=== PATIENT | female | born 1965 | race Caucasian/White ===

== ENCOUNTER 2019-09-13 14:54 | Outpatient (RCR) | payer OTHER | END 2019-09-15 10:09 | disposition home or self-care (01) | LOC: WSOH 14:54 | DX: S00.33XD Contusion of nose, subsequent encounter (principal); Z90.710 Acquired absence of both cervix and uterus; Z98.51 Tubal ligation status; Z90.89 Acquired absence of other organs; Y99.0 Civilian activity done for income or pay ==

== ENCOUNTER 2019-12-29 08:23 | Day surgery (SDC) | payer OTHER ==
[~2019-12-29] VITALS: Ht 157.5 cm; Wt 93.2 kg
[2019-12-29] MEDS ORDERED: FIBER GUMMIES2.5 GM PO (08:49)
[2019-12-29] MEDS ORDERED: MERIBIN5 MG PO (08:50)
[2019-12-29 08:51] VITALS: BP 155/91; PULSE 87; TEMP 98.2
[2019-12-29] MEDS ORDERED: GARLIC100 MG PO (08:51)
[2019-12-29] MEDS ORDERED: B-12 250 MCG PO (08:51)
[2019-12-29 10:15] VITALS: BP 127/78; PULSE 81; TEMP 97.5
--- NOTE | 2019-12-29 10:15 | NUR ---
Pt returned via cart to [facility]. Ambulated to recliner in bay with SBA. Sister present in room. Pt given a muffin and coffee per request. VSS-see flowsheet. Call light in reach.
[2019-12-29 10:30] VITALS: BP 144/87; PULSE 81
[2019-12-29 10:45] VITALS: BP 126/78; PULSE 16
--- NOTE | 2019-12-29 11:30 | NUR ---
VS remain stable-see flowsheet. Pt reports she is ready to go and still waiting on Dr Tomlinson to visit with her post procedure. Pt requested to dc at this time. DC teaching completed, pt and sister verbalized understanding. IV removed and pt has dressed. Taken via wheelchair to private vehicle for dc home with sister driving.
== END 2019-12-29 11:25 | disposition home or self-care (01) ==
LOC: SDCO 08:23
DX: Z12.11 Encounter for screening for malignant neoplasm of colon (principal); K63.5 Polyp of colon; K57.30 Diverticulosis of large intestine without perforation or abscess without bleeding; M19.90 Unspecified osteoarthritis, unspecified site; Z86.010 Personal history of colon polyps; Z88.6 Allergy status to analgesic agent; Z87.891 Personal history of nicotine dependence
CPT/HCPCS: J2704

== ENCOUNTER → 2020-03-07 | Outpatient (CLI) | payer OTHER ==
[~2020-03-07] MED LIST: B-12 250 MCG PO; FIBER GUMMIES2.5 GM PO; GARLIC100 MG PO; MERIBIN5 MG PO
== END ==
LOC: MC.RAD 01-23 15:30
DX: Z12.31 Encounter for screening mammogram for malignant neoplasm of breast (principal); N64.89 Other specified disorders of breast

== ENCOUNTER → 2020-03-14 | Outpatient (CLI) | payer OTHER | LOC: MC.RAD 12:41 | DX: N63.14 Unspecified lump in the right breast, lower inner quadrant (principal); N64.9 Disorder of breast, unspecified | CPT/HCPCS: G0279 ==

== ENCOUNTER 2020-03-19 18:05 | Emergency (ER) | payer OTHER ==
[~2020-03-19] VITALS: Ht 160 cm; Wt 90.9 kg
[~2020-03-19 18:05] MED LIST changes: -GLUCOPHAGE500 MG/TAB PO; -ZESTRIL 20MG TA20 MG PO
[2020-03-19 18:07] VITALS: TEMP 97.8
[2020-03-19] MEDS ORDERED: GLUCOPHAGE500 MG/TAB PO (18:31)
[2020-03-19] MEDS ORDERED: ZESTRIL 20MG TA20 MG PO (18:32)
[2020-03-19 18:34] LABS: BASO # 0.1 (0.0-0.2); BASO % 0.4 % (0.0-2.0); EOS # 0.1 (0.0-0.7); GRAN # 8.5 (1.4-6.5); GRAN % 66.7 % (42.2-75.2); HEMATOCRIT 43.1 % (37.0-47.0); HEMOGLOBIN 14.4 g/dl (12.5-16.0); LYMPH # 3.1 (1.2-3.4); LYMPH % 24.4 % (20.0-51.0); MEAN CELL VOLUME 86 fl (80.0-100.0); MEAN CORPUSCULAR HEMOGLOBIN 29 pg (27.0-31.0); MEAN CORPUSCULAR HGB CONC 33 g/dl (33.0-37.0); MEAN PLATELET VOLUME 9.2 fl (7.4-10.4); MONO # 0.9 (0.1-0.6); MONO % 7.2 % (1.7-9.3); PLATELET COUNT 298 K/mm3 (130-400); RED BLOOD COUNT 5.01 M/mm3 (4.10-5.30); REDCELL DISTRIBUTION WIDTH-CV 12.7 % (11.5-14.5)
[2020-03-19 18:43] LABS: ALBUMIN 4.4 gm/dL (3.5-5.0); BILIRUBIN,TOTAL 0.4 mg/dL (0.0-1.0); CALCIUM 9.5 mg/dL (8.4-10.2); CREATININE, serum 0.55 (0.52-1.25); POTASSIUM 4.2 mmol/L (3.4-5.0); TOTAL PROTEIN 7.6 gm/dL (6.4-8.2)
[2020-03-19 18:59] LABS: TROPONIN-I 11.2 ng/mL (0.000-0.035)
[2020-03-19 19:02] LABS: PROTHROMBIN TIME 11.5 SECONDS (9.7-12.8)
[2020-03-19 19:05] LABS: PARTIAL THROMBOPLASTIN TIME 29.3 SECONDS (26.0-37.0)
[2020-03-19 19:18] VITALS: BP 100/73; PULSE 90
== END 2020-03-19 19:25 | disposition short-term general hospital (02) ==
LOC: COL.ER 18:05
PROVIDERS: Emergency Medicine
DX: I21.19 ST elevation (STEMI) myocardial infarction involving other coronary artery of inferior wall (principal); K21.9 Gastro-esophageal reflux disease without esophagitis; I10 Essential (primary) hypertension; E11.9 Type 2 diabetes mellitus without complications; Z87.891 Personal history of nicotine dependence; Z85.3 Personal history of malignant neoplasm of breast; Z79.84 Long term (current) use of oral hypoglycemic drugs
CPT/HCPCS: J1644; J2270; J2405; J7030

== ENCOUNTER → 2020-03-19 | Outpatient (CLI) | payer OTHER ==
[~2020-03-19] MED LIST changes: +GLUCOPHAGE500 MG/TAB PO; +ZESTRIL 20MG TA20 MG PO
== END ==
LOC: MC.RAD 07:19
DX: N63.14 Unspecified lump in the right breast, lower inner quadrant (principal)

== ENCOUNTER 2020-07-06 15:53 | Emergency (ER) | payer OTHER ==
[~2020-07-06] VITALS: Ht 165.1 cm; Wt 93.2 kg
[~2020-07-06 15:53] MED LIST changes: +ASPIRIN 81M81 MG/TA2 PO; +GLUCOPHAGE500 MG/TAB PO; +LOPRESSOR 225 MG/TAB PO; +PERCOCET 325 MG1 TA2 PO; +PLAVIX 75MG TAB75 MG PO; +PROTONIX20 MG PO; +ZESTRIL 20MG TA20 MG PO
[2020-07-06 16:04] VITALS: BP 125/80; TEMP 99.4
[2020-07-06 17:43] VITALS: PULSE 81
== END 2020-07-06 17:45 | disposition home or self-care (01) ==
LOC: COL.ER 15:53
DX: S83.91XA Sprain of unspecified site of right knee, initial encounter (principal); M23.91 Unspecified internal derangement of right knee; I10 Essential (primary) hypertension; E11.9 Type 2 diabetes mellitus without complications; Z88.6 Allergy status to analgesic agent; Z79.82 Long term (current) use of aspirin; Z79.02 Long term (current) use of antithrombotics/antiplatelets; Z79.84 Long term (current) use of oral hypoglycemic drugs; X50.1XXA Overexertion from prolonged static or awkward postures, initial encounter; Y92.009 Unspecified place in unspecified non-institutional (private) residence as the place of occurrence of the external cause
CPT/HCPCS: L1846

== ENCOUNTER → 2020-07-19 | Outpatient (CLI) | payer OTHER | LOC: COL.RAD 11:57 | DX: M71.21 Synovial cyst of popliteal space [Baker], right knee (principal); M22.41 Chondromalacia patellae, right knee; S83.241A Other tear of medial meniscus, current injury, right knee, initial encounter ==

== ENCOUNTER 2020-10-06 09:13 | Emergency (ER) | payer OTHER ==
[~2020-10-06] VITALS: Ht 165.1 cm; Wt 100.0 kg
[2020-10-06 09:19] VITALS: TEMP 98.5
[2020-10-06] MEDS ORDERED: CIPRODEX OT (09:34)
[2020-10-06 09:48] VITALS: BP 122/75; PULSE 70
== END 2020-10-06 09:47 | disposition home or self-care (01) ==
LOC: COL.ER 09:13
DX: H60.93 Unspecified otitis externa, bilateral (principal); U07.1 COVID-19; Z87.891 Personal history of nicotine dependence; Z90.710 Acquired absence of both cervix and uterus; Z95.5 Presence of coronary angioplasty implant and graft; Z79.82 Long term (current) use of aspirin; Z79.84 Long term (current) use of oral hypoglycemic drugs

== ENCOUNTER 2021-07-29 10:27 | Emergency (ER) | payer OTHER ==
[~2021-07-29] VITALS: Ht 165.1 cm; Wt 99.1 kg
[~2021-07-29 10:27] MED LIST changes: +CIPRODEX OT
[2021-07-29 10:38] VITALS: TEMP 97.5
[2021-07-29 11:20] LABS: BASO # 0.1 (0.0-0.2); BASO % 0.8 % (0.0-2.0); EOS # 0.3 (0.0-0.7); EOS % 3.7 % (0-4.0); GRAN # 4.6 (1.4-6.5); GRAN % 63.3 % (42.2-75.2); HEMOGLOBIN 13.4 g/dl (12.5-16.0); LYMPH # 1.8 (1.2-3.4); MEAN CELL VOLUME 85 fl (80.0-100.0); MEAN CORPUSCULAR HEMOGLOBIN 28 pg (27.0-31.0); MEAN CORPUSCULAR HGB CONC 33 g/dl (33.0-37.0); MEAN PLATELET VOLUME 9.7 fl (7.4-10.4); MONO # 0.5 (0.1-0.6); MONO % 6.8 % (1.7-9.3); PLATELET COUNT 293 K/mm3 (130-400); RED BLOOD COUNT 4.83 M/mm3 (4.10-5.30); REDCELL DISTRIBUTION WIDTH-CV 14.3 % (11.5-14.5)
[2021-07-29 11:32] LABS: ALBUMIN 3.9 gm/dL (3.5-5.0); BILIRUBIN,TOTAL 0.3 mg/dL (0.2-1.2); CALCIUM 9.7 mg/dL (8.4-10.2); CREATININE, serum 0.81 mg/dL (0.57-1.11); TOTAL PROTEIN 7.4 gm/dL (6.2-8.1)
[2021-07-29 11:43] LABS: POTASSIUM 4.1 mmol/L (3.5-4.5)
[2021-07-29] MEDS ORDERED: COLACE 100100 MG/CAP PO (14:58)
[2021-07-29] MEDS ORDERED: ZOFRAN ODT4 MG PO (14:58)
[2021-07-29] MEDS ORDERED: PERCOCET 325 MG1 TA2 PO (14:58)
[2021-07-29 15:34] VITALS: BP 125/37; PULSE 64
[2021-09-12] MEDS ORDERED: MAGNESIUM250 M1 PO (10:59)
[2021-09-12] MEDS ORDERED: COLACE 100100 MG/CAP PO (14:36)
[2021-09-12] MEDS ORDERED: PERCOCET 325 MG1 TA2 PO (14:36)
[2021-09-12] MEDS ORDERED: MOTRIN 600600 MG/TAB PO (14:37)
== END 2021-07-29 15:37 | disposition home or self-care (01) ==
LOC: COL.ER 10:27
PROVIDERS: Personal Emergency Response Attendant
DX: K80.20 Calculus of gallbladder without cholecystitis without obstruction (principal); H60.502 Unspecified acute noninfective otitis externa, left ear; I25.10 Atherosclerotic heart disease of native coronary artery without angina pectoris; I10 Essential (primary) hypertension; Z87.891 Personal history of nicotine dependence; Z79.82 Long term (current) use of aspirin; Z79.02 Long term (current) use of antithrombotics/antiplatelets; Z79.899 Other long term (current) drug therapy
CPT/HCPCS: J2270; J2405; J7030; Q9967

== ENCOUNTER → 2021-07-31 | Outpatient (CLI) | payer OTHER ==
[~2021-07-31] MED LIST changes: +COLACE 100100 MG/CAP PO; +MAGNESIUM250 M1 PO; +MOTRIN 600600 MG/TAB PO; +ZOFRAN ODT4 MG PO
[2021-07-31 11:51] LABS: HEMATOCRIT 42.6 % (37.0-47.0); HEMOGLOBIN 13.9 g/dl (12.5-16.0); MEAN CELL VOLUME 86 fl (80.0-100.0); MEAN CORPUSCULAR HEMOGLOBIN 28 pg (27.0-31.0); MEAN CORPUSCULAR HGB CONC 33 g/dl (33.0-37.0); MEAN PLATELET VOLUME 9.4 fl (7.4-10.4); PLATELET COUNT 272 K/mm3 (130-400); RED BLOOD COUNT 4.95 M/mm3 (4.10-5.30); REDCELL DISTRIBUTION WIDTH-CV 14.4 % (11.5-14.5)
[2021-07-31 12:23] LABS: ALBUMIN 3.8 gm/dL (3.5-5.0); BILIRUBIN,TOTAL 0.3 mg/dL (0.2-1.2); C-REACTIVE PROTEIN 0.6 mg/dL (0.00-0.50); CALCIUM 9.7 mg/dL (8.4-10.2); CREATININE, serum 0.82 mg/dL (0.57-1.11); POTASSIUM 4.3 mmol/L (3.5-4.5); TOTAL PROTEIN 7.4 gm/dL (6.2-8.1)
== END ==
LOC: COL.RAD 11:14
PROVIDERS: Family Medicine
DX: K57.30 Diverticulosis of large intestine without perforation or abscess without bleeding (principal); K76.0 Fatty (change of) liver, not elsewhere classified; Z90.89 Acquired absence of other organs
CPT/HCPCS: Q9967

== ENCOUNTER → 2021-09-12 | Day surgery (SDC) | payer OTHER ==
[~2021-09-12] VITALS: Ht 165.1 cm; Wt 97.2 kg
[2021-09-12 11:06] VITALS: BP 137/89; PULSE 78; TEMP 98
[2021-09-12 15:12] VITALS: BP 125/67; PULSE 88; TEMP 98
--- NOTE | 2021-09-12 15:12 | NUR ---
Patient returned to bay 5 via cart. Patients eye are closed, but responds appropriately to questions or comments and opens eye when asked. Postop vitals started and alamrs set. Patient denies nausea, reports pain is improving and 5/10. Five operative sites clean, dry, well approximated and covered by glue. Ice chips and jello provided. Warm blankets placed across abdomen for comfort. Sister brought to bedside. Rails up x2, non slip socks on, call light in reach.
[2021-09-12 15:27] VITALS: BP 121/73; PULSE 87
--- NOTE | 2021-09-12 15:27 | NUR ---
Patient resting low fowlers in bed. Vitals stable. Tolerating food and drink well. Complains of mild pain, does not request medication.
[2021-09-12 15:42] VITALS: BP 128/80; PULSE 79
--- NOTE | 2021-09-12 15:42 | NUR ---
Patient low torrez in bed. Alert and oriented. Reports mild pain and nausea, does not want medication. Patient allowed to rest.
--- NOTE | 2021-09-12 16:37 | NUR ---
1550- Patient O2 sat 95% on room air. RN assist to bathroom, able to void without difficulty. Patient denies any nausea and reports pain has improved to 1/10. Request to be discharged home. IV discontinued with no complications. Reviewed discharge instructions and education material. Invited questions and answered to patient and sisters satisfaction. Instructed to dress and open door when ready for discharge. 1637- Patient transported via wheelchair and RN assist into personal vehicle to be driven home by sister.
== END ==
LOC: SDCO 08-15 12:30
DX: K80.64 Calculus of gallbladder and bile duct with chronic cholecystitis without obstruction (principal); E88.89 Other specified metabolic disorders; I10 Essential (primary) hypertension; I25.10 Atherosclerotic heart disease of native coronary artery without angina pectoris; K21.9 Gastro-esophageal reflux disease without esophagitis; M19.90 Unspecified osteoarthritis, unspecified site; E11.9 Type 2 diabetes mellitus without complications; E78.00 Pure hypercholesterolemia, unspecified; Z79.82 Long term (current) use of aspirin; Z79.899 Other long term (current) drug therapy; Z79.02 Long term (current) use of antithrombotics/antiplatelets; Z87.891 Personal history of nicotine dependence; Z79.01 Long term (current) use of anticoagulants; Z95.1 Presence of aortocoronary bypass graft; Z79.84 Long term (current) use of oral hypoglycemic drugs; Z80.42 Family history of malignant neoplasm of prostate; Z80.0 Family history of malignant neoplasm of digestive organs
CPT/HCPCS: J0690; J1100; J1170; J1885; J2405; J2704; J3010; J7030

== ENCOUNTER 2022-01-27 15:02 | Outpatient (RCR) | payer OTHER | END 2022-01-28 15:59 | disposition home or self-care (01) | LOC: WSOH 15:02 | DX: S80.01XD Contusion of right knee, subsequent encounter (principal); E11.9 Type 2 diabetes mellitus without complications; I10 Essential (primary) hypertension; Z86.73 Personal history of transient ischemic attack (TIA), and cerebral infarction without residual deficits; Z90.710 Acquired absence of both cervix and uterus; Z98.51 Tubal ligation status; Z95.5 Presence of coronary angioplasty implant and graft; Z98.890 Other specified postprocedural states; W01.0XXD Fall on same level from slipping, tripping and stumbling without subsequent striking against object, subsequent encounter; Y99.0 Civilian activity done for income or pay ==

== ENCOUNTER → 2022-04-22 | Outpatient (CLI) | payer OTHER ==
[~2022-04-22] MED LIST changes: +Biotin PO; +JARDIANCE25 PO; +LIPITOR 80MG80 MG PO; +ONE DAILY ESSE0.5 MG PO; +OZEMPIC1 MG/0.71 SQ; +PROTONIX 40MG T40 MG PO; +ZESTRIL2.5 MG PO; +ZETIA 10MG TAB10 MG PO
[2022-04-22 15:22] LABS: BASO # 0.1 K/mm3 (0.0-0.2); BASO % 0.8 % (0.0-2.0); EOS # 0.3 K/mm3 (0.0-0.7); EOS % 4.3 % (0.0-4.0); GRAN # 4.1 K/mm3 (1.4-6.5); GRAN % 56.6 % (42.2-75.2); HEMOGLOBIN 13.7 g/dl (12.5-16.0); LYMPH # 2.2 K/mm3 (1.2-3.4); MEAN CELL VOLUME 88 fl (80.0-100.0); MEAN CORPUSCULAR HEMOGLOBIN 29 pg (27-31); MEAN CORPUSCULAR HGB CONC 33 g/dl (33.0-37.0); MEAN PLATELET VOLUME 9.2 fl (7.4-10.4); MONO # 0.5 K/mm3 (0.1-0.6); MONO % 7.2 % (1.7-9.3); PLATELET COUNT 289 K/mm3 (130-400); RED BLOOD COUNT 4.78 M/mm3 (4.10-5.30); REDCELL DISTRIBUTION WIDTH-CV 13.5 % (11.5-14.5)
[2022-04-22 15:39] LABS: ALBUMIN 3.9 gm/dL (3.5-5.0); BILIRUBIN,TOTAL 0.5 mg/dL (0.2-1.2); CALCIUM 9.5 mg/dL (8.4-10.2); CREATININE, serum 0.74 mg/dL (0.57-1.11); POTASSIUM 4.4 mmol/L (3.5-4.5); TOTAL PROTEIN 7.4 gm/dL (6.2-8.1)
== END ==
LOC: COL.LAB 14:39
PROVIDERS: Family Medicine
DX: R11.2 Nausea with vomiting, unspecified (principal)

== ENCOUNTER 2022-04-23 06:42 | Observation (INO) | payer OTHER ==
[~2022-04-23] VITALS: Ht 165.1 cm; Wt 97.7 kg
[~2022-04-23 06:42] MED LIST changes: -Biotin PO; -JARDIANCE25 PO; -LIPITOR 80MG80 MG PO; -ONE DAILY ESSE0.5 MG PO; -OZEMPIC1 MG/0.71 SQ; -PROTONIX 40MG T40 MG PO; -ZESTRIL2.5 MG PO; -ZETIA 10MG TAB10 MG PO
[2022-04-23 07:05] LABS: BASO # 0.1 K/mm3 (0.0-0.2); EOS # 0.3 K/mm3 (0.0-0.7); EOS % 5.1 % (0.0-4.0); GRAN # 3.3 K/mm3 (1.4-6.5); HEMATOCRIT 39.9 % (37.0-47.0); HEMOGLOBIN 13.2 g/dl (12.5-16.0); LYMPH # 1.9 K/mm3 (1.2-3.4); LYMPH % 31.4 % (20.0-51.0); MEAN CELL VOLUME 87 fl (80.0-100.0); MEAN CORPUSCULAR HEMOGLOBIN 29 pg (27-31); MEAN CORPUSCULAR HGB CONC 33 g/dl (33.0-37.0); MONO # 0.5 K/mm3 (0.1-0.6); MONO % 8.2 % (1.7-9.3); PLATELET COUNT 266 K/mm3 (130-400); RED BLOOD COUNT 4.59 M/mm3 (4.10-5.30); REDCELL DISTRIBUTION WIDTH-CV 13.4 % (11.5-14.5)
[2022-04-23 07:25] LABS: ALANINE AMINOTRANSFERASE 27 U/L (0-55); ALBUMIN 3.8 gm/dL (3.5-5.0); ALKALINE PHOSPHATASE 73 U/L (40-150); ANION GAP 12 mmol/L (7-16); AST,SGOT 27 U/L (5-34); BILIRUBIN,TOTAL 0.5 mg/dL (0.2-1.2); BLOOD UREA NITROGEN 14 mg/dL (10-20); CALCIUM 9.4 mg/dL (8.4-10.2); CARBON DIOXIDE 22 mmol/L (22-29); CHLORIDE 109 mmol/L (98-107); GLUCOSE 114 mg/dL (70-99); POTASSIUM 4.2 mmol/L (3.5-4.5); SODIUM 143 mmol/L (136-145); TOTAL PROTEIN 7.2 gm/dL (6.2-8.1)
[2022-04-23 07:39] LABS: TROPONIN-I < 0.010 ng/mL (0.00-0.033)
--- NOTE | 2022-04-23 13:30 | NUR ---
PATIENT ADMITED INTO ROOM 328 WITH ABD PAIN FROM ER. ORIENTED BUT DROWSY. VSS ON TELE. PATIENT RECEIVED DILAUDID & MORPHINE IN ER. RIGHT HAND IV TO INT. SURGICAL AND GI CONSULTS CALLED TO PROVIDERS. SISTER LEAVING FOR A WHILE. ORIENTED TO ROOM. HEAD TO TOE ASSESSMENT COMPLETE. CALL LIGHT IN REACH. NO OTHER NEEDS.
[2022-04-23 13:35] VITALS: BP 128/67; PULSE 67; TEMP 98
[2022-04-23] MEDS ORDERED: Biotin PO (14:08)
[2022-04-23] MEDS ORDERED: ZESTRIL2.5 MG PO (14:12)
[2022-04-23] MEDS ORDERED: LIPITOR 80MG80 MG PO (14:14)
[2022-04-23] MEDS ORDERED: ONE DAILY ESSE0.5 MG PO (14:16)
[2022-04-23] MEDS ORDERED: JARDIANCE25 PO (14:16)
[2022-04-23] MEDS ORDERED: ZETIA 10MG TAB10 MG PO (14:19)
[2022-04-23] MEDS ORDERED: OZEMPIC1 MG/0.71 SQ (14:19)
[2022-04-23 16:02] VITALS: BP 115/61; PULSE 66; TEMP 98.2
[2022-04-23 20:09] VITALS: BP 120/81; PULSE 73; TEMP 98.7
--- NOTE | 2022-04-23 20:30 | NUR ---
PT SET UP FOR SHOWER. INT TO RT HAND. INDEPENDENT IN ROOM.
--- NOTE | 2022-04-23 22:00 | NUR ---
PT IN BED. DENIES PAIN. IVF INTITIATED TO RT HAND. PT TAKES HS MEDS WITHOUT PROBLEM. IS AWARE OF NEED FOR GI PANEL. WILL BE NPO AFTER MIDNIGHT FOR EGD.
[2022-04-24] VITALS (8 sets, daily range): BP systolic 106–131; BP diastolic 61–86; PULSE 63–85; TEMP 97–98.5
--- NOTE | 2022-04-24 | NUR ---
PT NPO FOR EGD TODAY.
--- NOTE | 2022-04-24 05:00 | NUR ---
PT RESTING QUIETLY. NO REQUESTS FOR PAIN MEDS. WILL HAVE EGD TODAY.
[2022-04-24 06:28] LABS: BASO # 0.1 K/mm3 (0.0-0.2); BASO % 1.1 % (0.0-2.0); EOS # 0.3 K/mm3 (0.0-0.7); EOS % 6.1 % (0.0-4.0); GRAN # 2.6 K/mm3 (1.4-6.5); GRAN % 48.8 % (42.2-75.2); HEMATOCRIT 38.8 % (37.0-47.0); HEMOGLOBIN 12.5 g/dl (12.5-16.0); LYMPH # 1.9 K/mm3 (1.2-3.4); LYMPH % 35.8 % (20.0-51.0); MEAN CELL VOLUME 89 fl (80.0-100.0); MEAN CORPUSCULAR HEMOGLOBIN 29 pg (27-31); MEAN CORPUSCULAR HGB CONC 32 g/dl (33.0-37.0); MEAN PLATELET VOLUME 9.1 fl (7.4-10.4); MONO # 0.4 K/mm3 (0.1-0.6); MONO % 7.8 % (1.7-9.3); PLATELET COUNT 246 K/mm3 (130-400); RED BLOOD COUNT 4.38 M/mm3 (4.10-5.30); REDCELL DISTRIBUTION WIDTH-CV 13.5 % (11.5-14.5)
[2022-04-24 07:00] LABS: ALBUMIN 3.3 gm/dL (3.5-5.0); C-REACTIVE PROTEIN 0.34 mg/dL (0.00-0.50); CALCIUM 8.9 mg/dL (8.4-10.2); CREATININE, serum 0.7 mg/dL (0.57-1.11); MAGNESIUM 1.9 mg/dL (1.6-2.6); PHOSPHOROUS 3.4 mg/dL (2.3-4.7); POTASSIUM 4.5 mmol/L (3.5-4.5)
[2022-04-24 07:12] LABS: ERYTHROCYTE SEDIMENTATION RATE 4 mm/hr (0-30)
--- NOTE | 2022-04-24 09:58 | NUR ---
PT INDEPENDENT IN ROOM. UP TO SHOWER THIS AM. THEN RETURNED TO BED. PT IS A/O X3. NO COMPLAINTS AT THIS TIME.
--- NOTE | 2022-04-24 10:33 | NUR ---
Initial visit; Patient thanked computer installation engineer for looking in on her and offering empathy and comfort. Patient was receptive to prayer and requested that Assembler Tester pray for answers. Assembler Tester will do so and will follow up while patient is hospitalized.
--- NOTE | 2022-04-24 14:47 | NUR ---
line out worker met with patient to discuss discharge plan. Patient reports that she lives at home alone in [place]. She is independent with her ADL's and does not utilize any DME to asssit with mobility. Patient has no home oxygen needs. PCP is Dr. Faria and she utilizes [facility] in [place] for mediations with no cost difficulty. Patient reports that she does not have a DPOA-HC established and does not wish to create one at this time. She is not and has two children :Christopher Wells [phone] and No Mata [phone], each who live out of [facility]. He closest relative is her sister Rochelle [phone]. Patient is planning on returning home once medically ready. Discharge plan: Home
--- NOTE | 2022-04-24 16:19 | NUR ---
PT TO ROOM 328 PER CART WITH REPORT FROM CORRY RICCI @[id number]. PT IS A/O X3 VSS, PTRESTING IN BED DENIES PAIN.
[2022-04-24] MEDS ORDERED: PROTONIX 40MG T40 MG PO (17:26)
--- NOTE | 2022-04-24 18:46 | NUR ---
DISCHARGE INSTRUCTIONS REVIEWED WITH PT AND SISTER. PT VERBALIZED UNDERSTANDING. PT WILL CALL PRIMARY AND GI FOR FOLLOW UP APTS.
== END 2022-04-24 19:00 | disposition home or self-care (01) ==
LOC: COL.ER 06:42 → SURG 11:14
PROVIDERS: Emergency Medicine Emergency Medical Services; ADMIT Internal Medicine
DX: K29.30 Chronic superficial gastritis without bleeding (principal); K21.9 Gastro-esophageal reflux disease without esophagitis; K44.9 Diaphragmatic hernia without obstruction or gangrene; I25.10 Atherosclerotic heart disease of native coronary artery without angina pectoris; E78.5 Hyperlipidemia, unspecified; I10 Essential (primary) hypertension; E11.9 Type 2 diabetes mellitus without complications; Z79.4 Long term (current) use of insulin; Z79.82 Long term (current) use of aspirin; Z79.899 Other long term (current) drug therapy; Z87.891 Personal history of nicotine dependence
CPT/HCPCS: C9113; G0378; J1170; J1790; J2270; J2550; J2704; J7030; Q9967

== ENCOUNTER 2022-06-05 10:43 | Day surgery (SDC) | payer OTHER ==
[~2022-06-05] VITALS: Ht 165.1 cm; Wt 96.1 kg
[~2022-06-05 10:43] MED LIST changes: +Biotin PO; +JARDIANCE25 PO; +LIPITOR 80MG80 MG PO; +ONE DAILY ESSE0.5 MG PO; +OZEMPIC1 MG/0.71 SQ; +PROTONIX 40MG T40 MG PO; +ZESTRIL2.5 MG PO; +ZETIA 10MG TAB10 MG PO
[2022-06-05 11:30] VITALS: BP 127/82; PULSE 91; TEMP 97.4
[2022-06-05] MEDS ORDERED: PROTONIX20 MG PO (11:39)
[2022-06-05 13:10] VITALS: BP 117/74; PULSE 98; TEMP 97.3
--- NOTE | 2022-06-05 13:10 | NUR ---
pt to bay 4 via cart from endo room, walked to chair, call light in reach, takes snack and drink, no c/o
[2022-06-05 13:25] VITALS: BP 122/81; PULSE 89
[2022-06-05 13:40] VITALS: BP 115/72; PULSE 91
--- NOTE | 2022-06-05 13:40 | NUR ---
here to see pt, reviewed discharge inst. with pt with verbal understanding. iv d'cd intact. pt up and dressed, up to b/r. discharged at 1400 via w/c to car with family
== END 2022-06-05 14:00 | disposition home or self-care (01) ==
LOC: SDCO 10:43
DX: K57.30 Diverticulosis of large intestine without perforation or abscess without bleeding (principal); Z86.010 Personal history of colon polyps; Z80.0 Family history of malignant neoplasm of digestive organs; Z87.891 Personal history of nicotine dependence
CPT/HCPCS: J2704; J7030

== ENCOUNTER → 2023-03-31 | Outpatient (CLI) | payer OTHER ==
[~2023-03-31] MED LIST changes: -B-12 250 MCG PO; +B-121000 MCG PO; +BLACK COHOSH40 MG PO; +IMDUR 60MG60 MG/TAB PO; -LOPRESSOR 225 MG/TAB PO; +NATURAL POTASS595 MG PO; +NATURE'S BLEND600 M2 PO; +NEURONTIN300 MG/CAP PO; +PEPCID40 MG PO; +TOPROL XL 25MG25 MG PO; +TYLENOL 325MG325 MG PO; +VITAMIN B COMPL1 SGL PO; +VITAMIN C500 MG PO
== END ==
LOC: COL.RAD 16:25
DX: R06.09 Other forms of dyspnea (principal)

== ENCOUNTER → 2023-03-31 | Outpatient (CLI) | payer OTHER | LOC: COL.LAB 16:24 | DX: R06.09 Other forms of dyspnea (principal) ==